=== PATIENT | male | born 1960 | race Two or more races ===

== ENCOUNTER 2021-11-07 04:39 | Emergency (ER) | payer OTHER ==
[~2021-11-07] VITALS: Ht 162.6 cm; Wt 60.8 kg
[2021-11-07] MEDS ORDERED: GLIPIZIDE XL10 MG PO (05:07)
[2021-11-07] MEDS ORDERED: DEPAKOTE ER500 MG PO (05:08)
[2021-11-07] MEDS ORDERED: TEGRETOL200 MG PO (05:08)
[2021-11-07] MEDS ORDERED: KEPPRA500 MG PO (05:08)
[2021-11-07] MEDS ORDERED: SYNTHROID150 MCG PO (05:09)
[2021-11-07] MEDS ORDERED: ACID REDUCER20 M1 PO (05:09)
[2021-11-07] MEDS ORDERED: COZAAR100 MG PO (05:09)
[2021-11-07] MEDS ORDERED: ATORVASTATIN CA40 MG PO (05:10)
[2021-11-07] MEDS ORDERED: TAMS0.4C PO (05:10)
[2021-11-07] MEDS ORDERED: HORIZANT300 MG PO (05:10)
[2021-11-07] MEDS ORDERED: CARAFATE1 GM PO (05:10)
[2021-11-07] MEDS ORDERED: NOVOLIN N100 UNIT/1 SUBCUTANEO (05:12)
[2021-11-07] MEDS ORDERED: NABUMETONE750 MG PO (05:15)
[2021-11-07] MEDS ORDERED: GLYCOPYRROLATE2 MG PO (05:15)
== END 2021-11-07 10:06 | disposition home or self-care (01) ==
LOC: ER 04:39
DX: E11.65 Type 2 diabetes mellitus with hyperglycemia (principal); R30.0 Dysuria; R42 Dizziness and giddiness

== ENCOUNTER → 2021-11-11 12:13 | Outpatient (CLI) | payer OTHER ==
[~2021-11-11 12:13] MED LIST: ACID REDUCER20 M1 PO; ATORVASTATIN CA40 MG PO; CARAFATE1 GM PO; COZAAR100 MG PO; DEPAKOTE ER500 MG PO; GLIPIZIDE XL10 MG PO; GLYCOPYRROLATE2 MG PO; HORIZANT300 MG PO; KEPPRA500 MG PO; NABUMETONE750 MG PO; NOVOLIN N100 UNIT/1 SUBCUTANEO; SYNTHROID150 MCG PO; TAMS0.4C PO; TEGRETOL200 MG PO
== END | disposition home or self-care (01) ==
LOC: LAB 12:13
PROVIDERS: ATTEND Internal Medicine Cardiovascular Disease
DX: I10 Essential (primary) hypertension (principal); E11.9 Type 2 diabetes mellitus without complications; E03.8 Other specified hypothyroidism; E78.2 Mixed hyperlipidemia; Z12.11 Encounter for screening for malignant neoplasm of colon; N40.0 Benign prostatic hyperplasia without lower urinary tract symptoms; E55.9 Vitamin D deficiency, unspecified

== ENCOUNTER 2021-11-11 13:21 | Outpatient (CLI) | payer OTHER | END 2021-11-11 13:28 | disposition home or self-care (01) | LOC: RAD 13:21 | PROVIDERS: ATTEND Internal Medicine Cardiovascular Disease | DX: M46.47 Discitis, unspecified, lumbosacral region (principal) ==

== ENCOUNTER 2023-01-13 08:12 | Emergency (ER) | payer OTHER ==
[~2023-01-13] VITALS: Ht 162.6 cm; Wt 67.1 kg
[2023-01-13] MEDS ORDERED: LANTUS SOL100 UNIT/1 SUBCUTANEO (08:38)
[2023-01-13] MEDS ORDERED: JARDIANCE10 MG PO (08:39)
[2023-01-13] MEDS ORDERED: TOPROL XL25 M1 PO (08:40)
[2023-01-13] MEDS ORDERED: PROAIR RESPICL90 MCG (08:41)
== END 2023-01-13 11:13 | disposition home or self-care (01) ==
LOC: ER 08:12
DX: E11.65 Type 2 diabetes mellitus with hyperglycemia (principal); I10 Essential (primary) hypertension; E03.9 Hypothyroidism, unspecified; Z79.84 Long term (current) use of oral hypoglycemic drugs; Z79.4 Long term (current) use of insulin

== ENCOUNTER 2024-11-07 01:35 | Emergency (ER) | payer OTHER ==
[~2024-11-07] VITALS: Ht 177.8 cm; Wt 68.0 kg
[~2024-11-07 01:35] MED LIST changes: +JARDIANCE10 MG PO; +LANTUS SOL100 UNIT/1 SUBCUTANEO; +PROAIR RESPICL90 MCG; +TOPROL XL25 M1 PO
[2024-11-07 01:46] VITALS: BP 180/90; O2SAT 100
[2024-11-07] MEDS ORDERED: METOCLOPRAMIDE HCL 5 MG/ML VIAL IM STA (05:24)
[2024-11-07] MEDS ORDERED: 0.9 % SODIUM CHLORIDE 500 ML IV STA (05:25)
[2024-11-07] MEDS ORDERED: PROMETHAZINE HCL 25 MG/ML AMPUL IM STA (05:25)
[2024-11-07] MEDS ORDERED: FAMOtidine 10 MG/ML (4ML VIAL) IV PUSH STA (05:26)
[2024-11-07] MEDS ORDERED: HYOSCYAMINE SULFATE 0.125 MG TAB.SUBL SL ONE (05:30)
[2024-11-07] MEDS ORDERED: HYOSCYAMINE SULFATE 0.125 MG TAB.SUBL ONE (05:36)
[2024-11-07] MEDS ORDERED: PROMETHAZINE HCL 25 MG/ML AMPUL ONE (05:36)
[2024-11-07] MEDS ORDERED: METOCLOPRAMIDE HCL 5 MG/ML VIAL ONE (05:37)
[2024-11-07] MEDS ORDERED: FAMOTIDINE/PF 20 MG/2 ML VIAL ONE (05:37)
[2024-11-07 07:00] LABS: HEMATOCRIT 43.4 % (39.0-48.0); HEMOGLOBIN 14.3 g/dL (13-16.00); MEAN CELL VOLUME 91.9 fL (80.0-100.00); MEAN CORPUSCULAR HEMOGLOBIN 30.4 pg (27.00-32.0); RED BLOOD COUNT 4.73 M/uL (4.00-6.00)
[2024-11-07 07:24] LABS: PLATELET COUNT 102 K/uL (150-450)
[2024-11-07 07:37] LABS: CALCIUM 9.2 mg/dL (8.5-10.1); CREATININE SERUM 1.5 mg/dL (0.70-1.30); GFR 46.97; POTASSIUM 5.13 mEq/L (3.5-5.1)
== END 2024-11-07 10:23 | disposition home or self-care (01) ==
LOC: ER 01:35
DX: R10.9 Unspecified abdominal pain (principal); R11.10 Vomiting, unspecified
CPT/HCPCS: 36415; 74022; 96365; 96366; 96372; 99283; J2765; J3490 ×2; J7042